=== PATIENT | male | born 1990 | race Caucasian/White ===

== ENCOUNTER 2025-01-10 13:44 | Inpatient (IN) | payer OTHER ==
[~2025-01-10] VITALS: Ht 180.3 cm; Wt 102.1 kg
[~2025-01-10 13:44] MED LIST: Etomidate 2MG / ML 10ML Vial IV ONE; Phenylephrine HCl 100 MCG/ML-NS 10MLSYR (1MG/10ML) IV ONE; Propofol 10mg/ml 20 ml Vial (Procedural) IV ONE; SuccINYLCHOLINE Chloride 100 MG/5 ML 5MLSYR IV ONE
[2025-01-10] MEDS ORDERED: NS 1,000 ML IV SCH ×3 (14:15→18:45)
[2025-01-10] MEDS ORDERED: Ketorolac Tromethamine 15mg Vial IV ONE (14:15)
[2025-01-10] MEDS ORDERED: Doxycycline Hyclate 100 MG in Dextrose 5% 250 ML IV ONE (14:25)
[2025-01-10 14:42] LABS: BASOPHILS ABSOLUTE AUTO 0.04 K/mm3 (0.00-0.23); BASOPHILS PERCENT AUTO 0 % (0-2); EOSINOPHILS ABSOLUTE AUTO 0.00 K/mm3 (0.00-0.68); EOSINOPHILS PERCENT AUTO 0 % (0-6); Hematocrit 45.1 % (37.0-53.0); Hemoglobin 15.8 g/dL (13.5-17.5); IMMATURE GRAN ABSOLUTE AUTO 0.15 K/mm3 (0.00-0.10); IMMATURE GRAN PERCENT AUTO 1 % (0-1); LYMPHOCYTES ABSOLUTE AUTO 0.53 K/mm3 (0.84-5.20); LYMPHOCYTES PERCENT AUTO 3 % (21-46); MONOCYTES ABSOLUTE AUTO 0.52 K/mm3 (0.16-1.47); MONOCYTES PERCENT AUTO 3 % (4-13); Mean Corpuscular HGB Conc 35.0 g/dL (31.5-36.5); Mean Corpuscular Volume 91 fL (80-100); NEUTROPHILS ABSOLUTE AUTO 17.52 K/mm3 (1.96-9.15); NEUTROPHILS PERCENT AUTO 93 % (41-73); NRBC ABSOLUTE 0.00 K/mm3 (0.00-0.02); NRBC Auto 0.0 /100 WBC (0.0-0.2); Platelet Count 233 K/mm3 (150-400); RDW Coefficient Variation 11.9 % (11.7-14.2); RDW Standard Deviation 39.8 fL (35.1-46.3)
[2025-01-10 15:02] LABS: Anion Gap 6.0 mmol/L (3-11); Blood Urea Nitrogen 16.0 mg/dL (8-24); CO2, Blood 29.0 mmol/L (21-32); Calcium, Blood 9.2 mg/dL (8.5-10.1); Chloride, Blood 99.0 mmol/L (98-108); Creatinine, Blood 1.11 mg/dL (0.60-1.20); Glucose, Blood 106.0 mg/dL (70-99); Potassium, Blood 4.1 mmol/L (3.5-5.5); Sodium, Blood 130.0 mmol/L (136-145)
[2025-01-10] MEDS ORDERED: Ondansetron HCl 2 MG / ML 2ML Vial IV PRN (17:50)
[2025-01-10] MEDS ORDERED: Albuterol 2.5 MG/3 ML VIAL INH PRN (17:50)
[2025-01-10] MEDS ORDERED: Clindamycin 900mg in D5W 50ML 50 ML IV SCH (18:00)
[2025-01-10] MEDS ORDERED: Ketorolac Tromethamine 15mg Vial IV PRN (18:15)
[2025-01-10] MEDS ORDERED: Lactobacil 2-S.Thermo-Bifido 1 1 Cap PO SCH (21:00)
[2025-01-10 22:12] VITALS: BP 118/77
[2025-01-11] MEDS ORDERED: NS 1,000 ML BAG IR SCH (03:40)
[2025-01-11] MEDS ORDERED: NS 250 ML IV PRN (03:45)
[2025-01-11 05:44] VITALS: BP 121/68
[2025-01-11 05:52] LABS: Hematocrit 38.6 % (37.0-53.0); Hemoglobin 13.3 g/dL (13.5-17.5); Mean Corpuscular HGB Conc 34.5 g/dL (31.5-36.5); Mean Corpuscular Volume 91 fL (80-100); NRBC ABSOLUTE 0.00 K/mm3 (0.00-0.02); NRBC Auto 0.0 /100 WBC (0.0-0.2); Platelet Count 195 K/mm3 (150-400); RDW Coefficient Variation 12.1 % (11.7-14.2); RDW Standard Deviation 40.4 fL (35.1-46.3)
--- NOTE | 2025-01-11 06:16 | NUR ---
PATIENT ARRIVED ON UNIT [employer]IA [id number], IN PAIN. ABLE TO 1 PERSON TRANSEFER TO BED. ADMISSION ASSESSMENT COMPLETED. PATIENT HAS A SCABBED BLISTER ON BOTTOM OF LEFT FOOT AND REDNESS ALL THE WAY UP THE LEG TO THE GROIN IN STREAKS, WARM AND TENDER TO TOUCH. PRN GIVEN FOR PAIN MANAGEMENT AND TYLENOL GIVEN FOR HEADACHE.
[2025-01-11 06:17] LABS: Anion Gap 9.0 mmol/L (3-11); Blood Urea Nitrogen 21.0 mg/dL (8-24); CO2, Blood 24.0 mmol/L (21-32); Calcium, Blood 8.5 mg/dL (8.5-10.1); Chloride, Blood 104.0 mmol/L (98-108); Creatinine, Blood 1.14 mg/dL (0.60-1.20); Glucose, Blood 106.0 mg/dL (70-99); Potassium, Blood 3.8 mmol/L (3.5-5.5); Sodium, Blood 133.0 mmol/L (136-145)
[2025-01-11 07:58] VITALS: BP 115/73
[2025-01-11] MEDS ORDERED: Enoxaparin 40 MG/0.4 ML SYR SC SCH (09:00)
[2025-01-11] MEDS ORDERED: NS 1,000 ML IV SCH (09:25)
[2025-01-11] MEDS ORDERED: Morphine Sulfate 4 MG/1 ML Injection IV PRN (09:25)
[2025-01-11] MEDS ORDERED: Ondansetron HCl 2 MG / ML 2ML Vial IV PRN (09:25)
[2025-01-11 15:55] VITALS: BP 114/60
[2025-01-11] MEDS ORDERED: CeFAZolin Sodium 2,000 MG in NS 100 ML IV SCH (16:00)
[2025-01-11] MEDS ORDERED: Clindamycin 900mg in D5W 50ML 50 ML IV SCH (17:19)
[2025-01-11] MEDS ORDERED: DiphenhydrAMINE HCl 50 MG/ML 1ML Vial IV ONE (18:00)
[2025-01-11] MEDS ORDERED: DiphenhydrAMINE HCl 50 MG/ML 1ML Vial IV PRN (18:00)
--- NOTE | 2025-01-11 18:19 | NUR ---
SHIFT SUMMARY PATIENT ALERT AND INTERACTIVE. PATIENT UP INDEPENDENTLY IN THE ROOM. PATIENT CONTINUES TO HAVE PAIN IN L LEG WHEN UP AND WALKING. REDNESS OUTLINED. PATIENT MEDICATED WITH PAIN MEDS ORDERED. PATIENT TAKEN TO CT VIA WHEELCHAIR FOR SCAN. ANTIBIOTICS CHANGED TO ANCEF. DOSE GIVEN THIS AFTERNOON. AFTER DOSE GIVEN, PATIENT AWAKENED WITH EXTREME HEADACHE RADIATING UP BACK TO HEAD AND EYES. EYES NOTED TO BE PUFFY. PATIENT STATING NECK FEELING SWOLLEN AND THROAT SORE WHEN SWALLOWING. PHARMACY CONTACTED TO CHECK FOR POSSIBLE SIDE AFFECTS TO ANCEF. PROVIDER CONTACTED AND ORDERS FOR BENADRYL GIVEN. PROVIDER UPDATED THAT PATIENT CONTINUED TO HAVE PAIN, SWELLING AND REDNESS. PATIENT DOSED WITH BOTH IV AND PO BENADRYL. AFTER ABOUT AN HOUR, PATIENT WAS ABLE TO RELAX AND REST. PATIENT VERY ANXIOUS AND SCARED DURING EVENT. NURSE AT BEDSIDE TO REASSURE PATIENT AND MONITOR.
[2025-01-11 20:27] VITALS: BP 111/54
[2025-01-12] VITALS (14 sets, daily range): BP systolic 119–134; BP diastolic 71–91
[2025-01-12] MEDS ORDERED: FentaNYL Citrate 50 MCG/ML 2 ML Injection ONE (01:28)
[2025-01-12 01:45] LABS: pH Blood Venous 7.33 (7.34-7.37)
[2025-01-12 02:07] LABS: Alanine Aminotransfer (ALT/SGP 50.0 U/L (12-78); Albumin, Blood 3.0 g/dL (3.4-5.0); Albumin/Globulin Ratio 0.8 (0.8-1.8); Anion Gap 8.0 mmol/L (3-11); Aspartate Aminotrans (AST/SGOT 26.0 U/L (12-37); Bilirubin, Total 0.6 mg/dL (0.1-1.0); Blood Urea Nitrogen 18.0 mg/dL (8-24); CO2, Blood 25.0 mmol/L (21-32); Calcium, Blood 8.5 mg/dL (8.5-10.1); Chloride, Blood 104.0 mmol/L (98-108); Creatinine, Blood 1.08 mg/dL (0.60-1.20); Globulin, Blood 3.8 g/dL (2.2-4.0); Glucose, Blood 118.0 mg/dL (70-99); Magnesium, Blood 1.7 mg/dL (1.6-2.4); Potassium, Blood 4.0 mmol/L (3.5-5.5); Sodium, Blood 133.0 mmol/L (136-145); Total Protein, Blood 6.8 g/dL (6.4-8.2)
[2025-01-12 02:11] LABS: BASOPHILS ABSOLUTE AUTO 0.02 K/mm3 (0.00-0.23); BASOPHILS PERCENT AUTO 0 % (0-2); EOSINOPHILS ABSOLUTE AUTO 0.04 K/mm3 (0.00-0.68); EOSINOPHILS PERCENT AUTO 1 % (0-6); Hematocrit 41.4 % (37.0-53.0); Hemoglobin 14.4 g/dL (13.5-17.5); IMMATURE GRAN ABSOLUTE AUTO 0.03 K/mm3 (0.00-0.10); IMMATURE GRAN PERCENT AUTO 0 % (0-1); LYMPHOCYTES ABSOLUTE AUTO 0.92 K/mm3 (0.84-5.20); LYMPHOCYTES PERCENT AUTO 11 % (21-46); MONOCYTES ABSOLUTE AUTO 0.49 K/mm3 (0.16-1.47); MONOCYTES PERCENT AUTO 6 % (4-13); Mean Corpuscular HGB Conc 34.8 g/dL (31.5-36.5); Mean Corpuscular Volume 91 fL (80-100); NEUTROPHILS ABSOLUTE AUTO 6.67 K/mm3 (1.96-9.15); NEUTROPHILS PERCENT AUTO 82 % (41-73); NRBC ABSOLUTE 0.00 K/mm3 (0.00-0.02); NRBC Auto 0.0 /100 WBC (0.0-0.2); Platelet Count 199 K/mm3 (150-400); RDW Coefficient Variation 12.1 % (11.7-14.2); RDW Standard Deviation 40.8 fL (35.1-46.3)
[2025-01-12] MEDS ORDERED: Naloxone HCl 0.4MG / ML 1ML Vial IV ONE (02:30)
--- NOTE | 2025-01-12 02:49 | NUR ---
PATIENT TOLD ELEMENTARY SECRETARY HE WAS HAVING DIFFICULTY BREATHING. ON ARIVAL TO ROOM FOUND PATIENT NOT VERBALLY RESPONDING TO VERBAL OR STERNAL RUB. ACTIVATED RAPID RESPONSE. PATIENT WAS SWEATING AND RED , O2 SAT >92% PULSE IN THE 80'S. RT ARRIVED FINDING SWOLLEN TOUNGE AND PREPERATIONS MADE TO INTUBATE. INTUBATION SUSCESSFULL AND PATIENT TRANSFERED TO ICU. REPORT GIVEN TO ICU NURSE AT BEDSIDE.
--- NOTE | 2025-01-12 03:08 | NUR ---
PT ARRIVED TO UNIT APPROXIMATELY 0123 AFTER AN TUBING MACHINE TENDER WAS CALLED. PT WAS INTUBATED ON THE FLOOR. WHEN HE ARRIVED HE WAS AGITATED AND NOT TOLERATING THE TUBE/BVM. PROPOFOL WAS BRIEFLY STARTED. DECISION WAS MADE TO EXTUBATE THE PATIENT AND PROPOFOL WAS STOPPED. NPA AND ETCO2 NC WAS PLACED BY RT.
[2025-01-12 04:11] LABS: pH Blood Venous 7.40 (7.34-7.37)
[2025-01-12 04:13] LABS: BASOPHILS ABSOLUTE AUTO 0.02 K/mm3 (0.00-0.23); BASOPHILS PERCENT AUTO 0 % (0-2); EOSINOPHILS ABSOLUTE AUTO 0.02 K/mm3 (0.00-0.68); EOSINOPHILS PERCENT AUTO 0 % (0-6); Hematocrit 38.9 % (37.0-53.0); Hemoglobin 13.5 g/dL (13.5-17.5); IMMATURE GRAN ABSOLUTE AUTO 0.09 K/mm3 (0.00-0.10); IMMATURE GRAN PERCENT AUTO 1 % (0-1); LYMPHOCYTES ABSOLUTE AUTO 0.40 K/mm3 (0.84-5.20); LYMPHOCYTES PERCENT AUTO 4 % (21-46); MONOCYTES ABSOLUTE AUTO 0.33 K/mm3 (0.16-1.47); MONOCYTES PERCENT AUTO 3 % (4-13); Mean Corpuscular HGB Conc 34.7 g/dL (31.5-36.5); Mean Corpuscular Volume 91 fL (80-100); NEUTROPHILS ABSOLUTE AUTO 9.67 K/mm3 (1.96-9.15); NEUTROPHILS PERCENT AUTO 92 % (41-73); NRBC ABSOLUTE 0.00 K/mm3 (0.00-0.02); NRBC Auto 0.0 /100 WBC (0.0-0.2); Platelet Count 185 K/mm3 (150-400); RDW Coefficient Variation 12.0 % (11.7-14.2); RDW Standard Deviation 40.0 fL (35.1-46.3)
[2025-01-12 04:30] LABS: Anion Gap 7.0 mmol/L (3-11); Blood Urea Nitrogen 18.0 mg/dL (8-24); CO2, Blood 26.0 mmol/L (21-32); Calcium, Blood 8.9 mg/dL (8.5-10.1); Chloride, Blood 105.0 mmol/L (98-108); Creatinine, Blood 1.08 mg/dL (0.60-1.20); Glucose, Blood 134.0 mg/dL (70-99); Potassium, Blood 4.6 mmol/L (3.5-5.5); Sodium, Blood 133.0 mmol/L (136-145)
--- NOTE | 2025-01-12 06:12 | NUR ---
SHIFT SUMMARY: PTS MENTATION HAS IMPROVED SINCE ARRIVING ON UNIT. HE DOESN'T ENTIRELY RECALL THE EVENTS THAT LED TO HIS TRANSFER HERE BUT HE IS APPROPRIATE AND ANSWERING QUESTIONS/FOLLOWING DIRECTION. HIS BREATHING HAS BEEN SHALLOW AND TACHYPNEIC BUT IS ALSO IMPROVING, THOUGH HE DOES STILL APPEAR GENERALLY LABORED DURING ANY MOVEMENT OR EXERTION. HE IS ALSO TRANSIENTLY DIAPHORETIC. PT REMAINS IN SINUS RHYTHM WITH A STABLE BP.
[2025-01-12] MEDS ORDERED: Desmopressin Acetate 5 ml Nasal Spray 10mcg/spray SCH (09:00)
--- NOTE | 2025-01-12 09:22 | NUR ---
STATUS UPDATE PT INITIALLY LETHARGIC BUT RESPONSIVE AND ORIENTED - REQUIRED SIGNIFICANT ENCOURAGEMENT TO OPEN EYES OR MOVE EXTREMITIES BUT ABLE TO FOLLOW COMMANDS. PT TRANSPORTED TO CT VIA BED WITH RN X2 FOR CTA CHEST TO R/O PE. PT DIAPHORETIC BUT AFEBRILE. BATH, GOWN/LINEN CHANGE PERFORMED UPON RETURN TO ROOM. PT C/O BRIEF EPISODIC CP STATING IT FELT LIKE "PINS AND NEEDLES ACROSS CHEST". PT HAD BEEN SB-NS 50S-70S SINCE START OF SHIFT - SOME DELAYED BEATS PRESENT ON MONITOR AT TIME OF REPORTED CP. CARE TEAM NOTIFIED AND EKG PERFORMED BY WHICH TIME NO FURTHER RHYTHM ABNORMALITIES PRESENT AND CP RESOLVED. PT O2 SAT 100% RA, PROVIDED W/ INCENTIVE SPIROMETER AND INSTRUCTED ON PROPER USE. REG DIET, GOOD ORAL INTAKE. PT ABLE TO USE URINAL INDEPENDENTLY. EDEMA AND DISCOLORATION/REDNESS/DEMARCATION TO LLE - PRESENT ON ADMISSION DX OF CELLULITIS - IMPROVED FROM PREVIOUS ASSESSMENTS. LESION PRESENT ON BOTTOM OF LEFT FOOT, PRESENT ON ADMISSION. PIV X2, LFA/LAC. CLEOCIN ABX. TRANSFER ORDERS FOR MED WITH TELEMETRY. FATHER AT BEDSIDE DURING PHYSICIAN ROUNDS WITH DR. LOVE AND RESIDENT. NO FURTHER QUESTIONS OR CONCERNS PER PT. ALLERGY LIST UPDATED TO REFLECT LIKELY REACTION TO CEFAZOLIN. SAFETY, COMFORT, HYGIENE ADDRESSED. AWAITING BED PLACMENT FOR MEDICAL TRANSFER.
[2025-01-12 14:51] LABS: U Amphetamine Screen DETECTED; U Barbituate Screen Not Detected; U Benzodiazapine Screen Not Detected; U Buprenorphine Screen Not Detected; U Cannabinoids Screen Not Detected; U Cocaine Screen Not Detected; U Methadone Screen Not Detected; U Methamphetamine Screen DETECTED; U Opiates Screen Not Detected; U Oxycodone Screen Not Detected; U Phencyclidine Screen Not Detected
--- NOTE | 2025-01-12 17:42 | NUR ---
SHIFT SUMMARY PT A/O X4, AFEBRILE. SLEPT A GOOD BIT OF THE AFTERNOON. FAMILY VISITED THIS MORNING AND SIGNIFICANT OTHER AT BEDSIDE MOST OF THE DAY. PT WAS SB THIS MORNING AND HAS STEADILY CLIMBED TO HIGH 90S LOW 100S SINUS TACH. BP STABLE. REMAINS ON ROOM AIR. NO FURTHER EPISODES OF CHEST PAIN. GOOD NUTRITIONAL INTAKE. ADEQUATE UOP VIA URINAL. UDS SENT. NO BM. PIV X2. AWAITING MEDICAL WITH TELE TRANSFER. SAFETY, COMFORT, HYGIENE ADDRESSED.
--- NOTE | 2025-01-12 21:19 | NUR ---
PT LEFT AMA PT WAS COOPERATIVE AND ALL ASSESSMENTS AT START OF SHIFT WERE WNL. GIRLFRIEND LAYING IN BED WITH HIM. AT APPROX 1950 I HEARD THE PT YELLING AT HIS GIRLFRIEND WHO WAS LEAVING FOR THE NIGHT, I WALKED TOWARD THE ROOM TO SEE WHAT WAS GOING ON AND SHE WALKED QUICKLY BY AND ANNOUNCED THAT "HE'S PLANNING ON LEAVING RIGHT NOW". OLIVE PICKER, BETHEL, AND I WENT INTO THE ROOM TO TALK TO HIM. WE FOUND HIM TRYING TO UNSCREW HIS IV TUBING FROM THE IV. I SCREWED IT BACK ON AND HE TOLD BETHEL THAT HE JUST WANTED TO GET HIS CIGARETTES FROM HIS CAR SO HE CAN HOLD ONE (UNLIT) IN HIS MOUTH. SHE EDUCATED HIM ON THE HOSPITALS SMOKING POLICY, I BACKED HER UP AND HE SAID HE WANTED TO LEAVE. WE TOLD HIM THAT WE WOULD CALL THE DR AND GET THE PROCESS STARTED. I CALLED THE HOSPITALIST AND THE RESIDENT CAME DOWN TO TALK TO HIM ABOUT HIS SITUATION, HE STILL DECIDED TO LEAVE, THE AMA FORM WAS SIGNED BY HIM, MYSELF, AND BETHEL. HIS TWO PERIPHERAL IVS WERE REMOVED AND HE WAS OUT AT 2010. AT 2010
== END 2025-01-12 20:00 | disposition left against medical advice (07) | DRG 872 ==
LOC: ER 13:44 → MEDS 13:45 → ICUE 01-12 01:16
PROVIDERS: Emergency Medicine; Nurse Practitioner Acute Care; Student in an Organized Health Care Education/Training Program; ADMIT Family Medicine
DX: A41.9 Sepsis, unspecified organism (principal); L03.116 Cellulitis of left lower limb; E87.1 Hypo-osmolality and hyponatremia; E87.29 Other acidosis; F17.210 Nicotine dependence, cigarettes, uncomplicated; F15.90 Other stimulant use, unspecified, uncomplicated; Z99.81 Dependence on supplemental oxygen
CPT/HCPCS: 31500; 36415; 71260; 73590; 73701; 80048; 80053; 82803; 82947; 83605; 83735; 85025; 85027; 85379; 93005; 93010; 93926; 93971; 94002; 94640; 94664; 94760; 94762; 96365; 96366; 96367; 96375; 99285-25; A9270; G0378; J0330; J0690; J1200; J1650; J1885; J2371; J2704; J2919; J3010; J7030; J7050; J7060; J7120; Q9967

== ENCOUNTER 2025-01-13 19:44 | Emergency (ER) | payer OTHER ==
[~2025-01-13] VITALS: Ht 180.3 cm; Wt 102.1 kg
[2025-01-13 20:50] LABS: BASOPHILS ABSOLUTE AUTO 0.03 K/mm3 (0.00-0.23); BASOPHILS PERCENT AUTO 0 % (0-2); EOSINOPHILS ABSOLUTE AUTO 0.13 K/mm3 (0.00-0.68); EOSINOPHILS PERCENT AUTO 2 % (0-6); Hematocrit 39.4 % (37.0-53.0); Hemoglobin 13.2 g/dL (13.5-17.5); IMMATURE GRAN ABSOLUTE AUTO 0.04 K/mm3 (0.00-0.10); IMMATURE GRAN PERCENT AUTO 1 % (0-1); LYMPHOCYTES ABSOLUTE AUTO 1.78 K/mm3 (0.84-5.20); LYMPHOCYTES PERCENT AUTO 21 % (21-46); MONOCYTES ABSOLUTE AUTO 0.73 K/mm3 (0.16-1.47); MONOCYTES PERCENT AUTO 9 % (4-13); Mean Corpuscular HGB Conc 33.5 g/dL (31.5-36.5); Mean Corpuscular Volume 92 fL (80-100); NEUTROPHILS ABSOLUTE AUTO 5.80 K/mm3 (1.96-9.15); NEUTROPHILS PERCENT AUTO 68 % (41-73); NRBC ABSOLUTE 0.00 K/mm3 (0.00-0.02); NRBC Auto 0.0 /100 WBC (0.0-0.2); Platelet Count 271 K/mm3 (150-400); RDW Coefficient Variation 12.5 % (11.7-14.2); RDW Standard Deviation 42.2 fL (35.1-46.3)
[2025-01-13 21:15] LABS: Alanine Aminotransfer (ALT/SGP 44.0 U/L (12-78); Albumin, Blood 3.3 g/dL (3.4-5.0); Albumin/Globulin Ratio 0.8 (0.8-1.8); Anion Gap 6.0 mmol/L (3-11); Aspartate Aminotrans (AST/SGOT 22.0 U/L (12-37); Bilirubin, Total 0.4 mg/dL (0.1-1.0); Blood Urea Nitrogen 17.0 mg/dL (8-24); CO2, Blood 29.0 mmol/L (21-32); Calcium, Blood 8.9 mg/dL (8.5-10.1); Chloride, Blood 106.0 mmol/L (98-108); Creatinine, Blood 0.97 mg/dL (0.60-1.20); Globulin, Blood 4.0 g/dL (2.2-4.0); Glucose, Blood 84.0 mg/dL (70-99); Potassium, Blood 3.9 mmol/L (3.5-5.5); Sodium, Blood 137.0 mmol/L (136-145); Total Protein, Blood 7.3 g/dL (6.4-8.2)
[2025-01-14] MEDS ORDERED: Cleocin HCl150 MG PO (00:57)
== END 2025-01-14 01:31 | disposition home or self-care (01) ==
LOC: ER 19:44
PROVIDERS: Student in an Organized Health Care Education/Training Program
DX: L03.116 Cellulitis of left lower limb (principal); F17.210 Nicotine dependence, cigarettes, uncomplicated; Z88.1 Allergy status to other antibiotic agents
CPT/HCPCS: 80053; 83605; 85025; 99283; A9270